=== PATIENT | female | born 1990 | race Caucasian/White ===

== ENCOUNTER 2018-07-25 21:54 | Inpatient (IN) ==
[2018-07-26] MEDS ORDERED: LACTATED RINGER'S 1,000 ML IV PRN ×2 (01:01→02:11)
[2018-07-26] MEDS ORDERED: PENICILLIN G POTASSIUM 6 MU in DEXTROSE 5% 250 ML IV STA (01:01)
[2018-07-26] MEDS ORDERED: BUPIVACAINE 0.25% 30 ML VIAL ONE (01:25)
[2018-07-26] MEDS ORDERED: fentaNYL 2MCG/ML ROPIV 1.25MG/ML 100 ML BAG EPI ONE (01:26)
[2018-07-26] MEDS ORDERED: fentaNYL citrate 100 MCG/2 ML VIAL ONE (01:26)
[2018-07-26] MEDS ORDERED: ePHEDrine sulfate 50 MG/ML AMP ONE (01:26)
[2018-07-26 01:29] LABS: Hematocrit (blood only) 34.9 % (37-47); Hemoglobin 11.9 g/dL (12.0-16.0); Mean Corpuscular Volume 88.8 fL (80-100); Mean Platelet Volume 10.6 fL (7.4-10.4); Platelet Count 157 K/uL (130-400); RDW Coefficient of Variation 13.3 % (11.5-14.5); RDW Standard Deviation 43.4 fL (36.4-46.3); Red Blood Count 3.93 M/uL (4.2-5.4); White Blood Count 13.59 K/uL (4.8-10.8)
--- NOTE | 2018-07-26 01:31 | Obstetrical Progress Note ---
Date of Service July 26, 2018 Subjective Addmit Note 28 F P2002 at 36,5 weeks in labor. GBS is positive. FHT Cat 1. Cervix 6/70/-2 /vertex. Will start antibiotic and anticipate normal delivery. Physical Exam 2 Vital Signs (Past 24 Hours): Last Vital Signs Temp 37.1 C 07/25/18 23:00 Pulse 90 07/25/18 22:54 Resp 18 07/25/18 23:00 BP 122/77 07/25/18 22:54
[2018-07-26 01:40] LABS: Mean Corpuscular Hgb Conc 34.1 g/dL (32-36)
--- NOTE | 2018-07-26 01:54 | Anesthesiology Consultation ---
Date of Service July 26, 2018 Assessment & Plan (1) Encounter for pre-operative examination: Chart Review Chart Review: Acceptable Risk for Labor Epidural History Height/Weight Height: 5 ft 3 in Weight: 86.183 kg Allergies Allergy/AdvReac Type Severity Reaction Status Date / Time hayfever Allergy Unknown Uncoded 05/11/18 11:18 Medications Home Medications Medication Instructions Recorded Confirmed Last Taken [id number] fumarate-FA 1 tab PO DAILY 07/25/18 07/26/18 07/25/18 06:00 [] Active Medications Generic Name Dose Route Start Last Admin Trade Name Freq PRN Reason Stop Dose Admin Penicillin G Potassium 6 mu/ 262 mls @ 262 mls/hr 07/26/18 01:01 07/26/18 01: 30 Dextrose IV 07/26/18 02:00 262 mls/hr NOW STA Administration Lactated Ringer's 1,000 mls @ 999 mls/hr 07/26/18 01:01 07/26/18 01:22 Lr IV 08/25/18 01:00 999 mls/hr .Q1H1M PRN Administration (Pre-Anesthesia) Past Medical History Medical History H/O wisdom tooth extraction delivery Past Family History Family History Father Hypertension Grandmother (Maternal) Breast cancer Past Surgical History Surgical History H/O nasal septoplasty Social History Smoking Status: Current every day smoker tobacco type: cigarettes Smoking cigarettes per day: 20 Do You Dip or Chew Tobacco: No Hx Alcohol Use: No Hx Substance Use: No substance use type: does not use Physical Exam Vital Signs Last Vital Signs Temp 37.1 C 07/25/18 23:00 Pulse 90 07/25/18 22:54 Resp 18 07/25/18 23:00 BP 122/77 07/25/18 22:54 Testing Laboratory Results 07/26/18 01:18
[2018-07-26] MEDS: LACTATED RINGER'S 1,000 ML IV SCH ×2 (02:06→10:00)
[2018-07-26] MEDS ORDERED: fentaNYL 2MCG/ML ROPIV 1.25MG/ML 100 ML BAG EPI PRN (02:11)
[2018-07-26] MEDS ORDERED: NALOXONE HCL 0.4 MG/1 ML VIAL/CARP IV PRN (02:11)
[2018-07-26] MEDS ORDERED: NALOXONE HCL 1 MG in SODIUM CHLORIDE 0.9% 1000ML 1,000 ML IV PRN (02:11)
[2018-07-26] MEDS ORDERED: ePHEDrine sulfate 50 MG/ML AMP IV PRN (02:11)
[2018-07-26] MEDS: PENICILLIN G POTASSIUM 3 MU in DEXTROSE 5% 100 ML IV PRN ×4 (05:04→17:05)
--- NOTE | 2018-07-26 10:32 | Progress Note ---
Date of Service July 26, 2018 Pt seenand examined PTIS 36.6WEEKS TODAY HX of PTD Admitted at 6cm +GBS- completed antibx tx FHR; CAT1 Ctx; irregular VE; Uncahnged 6cm/80/-2 Plan AROM with Amnio hook- clear Anticipate VD Physical Exam 2 Vital Signs (Past 24 Hours): Last Vital Signs Temp 37.0 C 07/26/18 07:07 Pulse 74 07/26/18 10:26 Resp 18 07/26/18 07:07 BP 119/73 07/26/18 10:21 Pulse Ox 100 07/26/18 10:26
--- NOTE | 2018-07-26 11:12 | Labor Progress Brief Note ---
Date of Service July 26, 2018 Progress Note Called to evaluate Pt with spontaneous decel On arrival, pt was on her left side with nasal oxygen FHR was not traceable with external monitor AROM with scalp placed- Meconium Turb given IM FHR returned to 150's discussed and signed consent for c/sec Physical Exam 2 Vital Signs (Past 24 Hours): Last Vital Signs Temp 37.0 C 07/26/18 07:07 Pulse 75 07/26/18 11:06 Resp 18 07/26/18 07:07 BP 97/72 L 07/26/18 11:06 Pulse Ox 100 07/26/18 11:06
[2018-07-26] MEDS ORDERED: LACTATED RINGER'S 1,000 ML IV SCH ×2 (11:15→12:13)
[2018-07-26] MEDS ORDERED: CEFAZOLIN 2,000 MG in SYRINGE 0 ML IV SCH (11:45)
[2018-07-26] MEDS ORDERED: CITRIC ACID/SODIUM CITRATE 15 ML UDC PO SCH (11:45)
[2018-07-26] MEDS ORDERED: ONDANSETRON INJ 2 MG/ML 2 ML VIAL IV PRN (12:41)
[2018-07-26] MEDS ORDERED: HYDROCORTISONE ACETATE 25 MG SUPP PR PRN ×2 (12:41→18:05)
[2018-07-26] MEDS ORDERED: BENZOCAINE 20% AER SPR 82.5 GM CAN EXT PRN ×2 (12:41→18:05)
[2018-07-26] MEDS ORDERED: PROMETHAZINE HCL 25 MG in SODIUM CHLORIDE 0.9% 50 ML IV PRN (12:41)
[2018-07-26] MEDS ORDERED: MAGNESIUM HYDROXIDE SUSP 30 ML UDC PO PRN (12:41)
[2018-07-26] MEDS ORDERED: SUPERCREAM 0.870% 15 GM JAR EXT PRN ×2 (12:41→18:05)
[2018-07-26] MEDS ORDERED: IBUPROFEN 600 MG TAB PO PRN (12:41)
[2018-07-26] MEDS ORDERED: ZOLPIDEM TARTRATE 5 MG TAB PO PRN (12:41)
[2018-07-26] MEDS ORDERED: DiphenhydrAMINE HCL 50 MG/ML VIAL IV PRN (12:41)
[2018-07-26] MEDS ORDERED: SENNA 8.6 MG TAB PO PRN (12:41)
[2018-07-26] MEDS ORDERED: OXYCODONE/ACETAMINOPHEN 5mg/325mg TAB PO PRN ×2 (12:41→18:05)
[2018-07-26] MEDS ORDERED: OXYTOCIN 30 UNITS/500 ML BAG IV PRN (14:01)
--- NOTE | 2018-07-26 14:02 | Labor Progress Brief Note ---
Date of Service July 26, 2018 Pt doing well FHR; CAT1 ctx; 2-4mins MIld VE;unchanged AROM earlier Plan Pitocin augmentation Physical Exam 2 Vital Signs (Past 24 Hours): Last Vital Signs Temp 36.4 C L 07/26/18 11:47 Pulse 69 07/26/18 13:56 Resp 18 07/26/18 11:47 BP 101/62 07/26/18 13:50 Pulse Ox 98 07/26/18 13:56
--- NOTE | 2018-07-26 15:08 | Labor Progress Brief Note ---
Date of Service July 26, 2018 Progressnote called to evaluate pt with decel into the 60 x6 mins Om arrival to room , pt wason her left side, Oxygen mask was on , Pitocin was off and IVF bolus running. FHR was back to baseline VE; 8/80/-2 Ctx 2-4mims Plan scalp placed expectant management for now Physical Exam 2 Vital Signs (Past 24 Hours): Last Vital Signs Temp 36.4 C L 07/26/18 11:47 Pulse 66 07/26/18 15:01 Resp 18 07/26/18 11:47 BP 114/60 07/26/18 14:50 Pulse Ox 100 07/26/18 15:01
[2018-07-26] MEDS ORDERED: ACETAMINOPHEN W/CODEINE #3 1 TAB PO PRN (18:05)
[2018-07-26] MEDS ORDERED: miSOPROStol 200 MCG TAB PR ONE (18:05)
[2018-07-26] MEDS ORDERED: BISACODYL 10 MG SUPP PR PRN (18:05)
[2018-07-26] MEDS ORDERED: miSOPROStol 200 MCG TAB ONE (18:16)
--- NOTE | 2018-07-26 18:31 | Delivery Summary ---
DATE OF OPERATION: 07/26/2018 Patient delivered a live in left occiput anterior presentation. There was no nuchal cord. was delivered and placed on mother's abdomen. Cord was clamped and cut. Cord blood was obtained. Placenta was spontaneously delivered. Inspection of the placenta shows a normal grossly looking placenta, 3-vessel cord is seen. Inspection of the perineum showed no laceration, no tears. ESTIMATED BLOOD LOSS: 400 mL. All instruments were removed from the vagina and accounted for x2 including sponges and retractors. Baby and mother are doing well in recovery. Infant's weight and Apgars are in the pediatric record. I attest to the content of the Intraoperative Record and any orders documented therein. Any exception s are noted below.
--- NOTE | 2018-07-26 19:47 | Anesthesia Procedure Note ---
Date of Service July 26, 2018 Anesthesia Post Epidural Note Vital Signs Vital Signs: Temp Pulse Resp BP Pulse Ox 07/26/18 19:35 78 20 113/86 07/26/18 19:20 84 117/71 07/26/18 19:05 78 20 108/78 07/26/18 18:51 93 H 113/60 07/26/18 18:35 70 123/63 07/26/18 18:21 83 133/73 07/26/18 18:05 91 H 117/62 07/26/18 17:57 98 H 128/61 07/26/18 17:52 76 148/69 H 07/26/18 17:51 71 98 07/26/18 17:46 131 H 100 07/26/18 17:44 116 H 91 07/26/18 17:41 87 99 07/26/18 17:38 36.8 C 20 07/26/18 17:36 96 H 119/71 100 07/26/18 17:31 76 99 07/26/18 17:26 87 99 07/26/18 17:21 79 99 07/26/18 17:20 81 123/65 07/26/18 17:16 69 99 07/26/18 17:11 86 99 07/26/18 17:06 75 127/66 98 07/26/18 17:01 77 99 07/26/18 16:56 66 98 07/26/18 16:51 85 99 07/26/18 16:46 86 99 07/26/18 16:41 78 99 07/26/18 16:36 61 105/56 L 98 07/26/18 16:31 75 99 07/26/18 16:26 76 98 07/26/18 16:21 68 110/58 L 100 07/26/18 16:16 75 97 07/26/18 16:11 64 98 07/26/18 16:06 76 100/57 L 98 07/26/18 16:01 78 99 07/26/18 15:56 77 99 07/26/18 15:51 82 117/55 L 99 07/26/18 15:46 69 99 07/26/18 15:41 63 100 07/26/18 15:37 56 L 109/62 07/26/18 15:36 61 100 07/26/18 15:31 60 100 07/26/18 15:26 66 100 07/26/18 15:21 59 L 113/69 100 07/26/18 15:16 70 100 07/26/18 15:11 61 100 07/26/18 15:06 63 117/57 L 100 07/26/18 15:01 66 100 07/26/18 14:56 72 100 07/26/18 14:51 57 L 100 07/26/18 14:50 56 L 114/60 07/26/18 14:46 52 L 100 07/26/18 14:41 76 100 07/26/18 14:36 68 107/56 L 99 07/26/18 14:31 66 99 07/26/18 14:26 64 98 07/26/18 14:21 70 107/62 99 07/26/18 14:16 79 100 07/26/18 14:11 61 98 07/26/18 14:06 85 100 07/26/18 14:05 87 106/64 07/26/18 14:01 63 98 07/26/18 13:56 69 98 07/26/18 13:51 81 99 07/26/18 13:50 61 101/62 07/26/18 13:46 71 98 07/26/18 13:41 73 98 07/26/18 13:36 83 99 07/26/18 13:35 77 97/63 L 07/26/18 13:31 73 98 07/26/18 13:26 69 99 07/26/18 13:22 75 101/55 L 07/26/18 13:21 75 99 07/26/18 13:16 86 99 07/26/18 13:11 75 99 07/26/18 13:06 73 97/71 L 98 07/26/18 13:01 73 100 07/26/18 12:56 70 100 07/26/18 12:51 79 113/63 99 07/26/18 12:46 84 99 07/26/18 12:41 65 99 07/26/18 12:36 81 123/57 L 99 07/26/18 12:31 69 99 07/26/18 12:26 73 99 07/26/18 12:22 67 102/63 07/26/18 12:21 74 98 07/26/18 12:16 62 98 07/26/18 12:11 63 99 07/26/18 12:06 101 H 107/67 100 07/26/18 12:01 68 99 07/26/18 11:56 61 98 07/26/18 11:51 74 108/59 L 99 07/26/18 11:47 36.4 C L 18 07/26/18 11:46 64 100 07/26/18 11:41 77 100 07/26/18 11:36 76 99 07/26/18 11:31 70 99 07/26/18 11:26 89 99 07/26/18 11:23 75 117/62 07/26/18 11:21 74 99 07/26/18 11:16 76 100 07/26/18 11:11 92 H 100 07/26/18 11:06 75 97/72 L 100 07/26/18 11:01 75 99 07/26/18 10:56 77 99 07/26/18 10:51 73 99 07/26/18 10:50 77 101/57 L 07/26/18 10:46 74 99 07/26/18 10:41 71 99 07/26/18 10:36 71 109/65 100 07/26/18 10:31 64 99 07/26/18 10:26 74 100 07/26/18 10:21 76 119/73 100 07/26/18 10:16 76 99 07/26/18 10:11 70 99 07/26/18 10:06 70 107/69 100 07/26/18 10:01 72 99 07/26/18 09:56 72 99 07/26/18 09:51 70 100 07/26/18 09:50 69 110/66 07/26/18 09:46 79 100 07/26/18 09:41 62 100 07/26/18 09:37 66 110/70 07/26/18 09:36 68 100 07/26/18 09:31 81 99 07/26/18 09:26 74 100 07/26/18 09:21 70 100 07/26/18 09:20 71 106/67 07/26/18 09:16 71 100 07/26/18 09:14 73 91 07/26/18 09:11 75 100 07/26/18 09:06 66 100 07/26/18 09:05 76 112/72 07/26/18 09:01 66 100 12/26/18 08:56 68 100 12/18 08:51 82 108/69 100 12/18 08:46 81 100 12/18 08:41 71 100 07/26/18 08:36 68 110/59 L 100 12/18 08:31 70 100 12/18 08:26 74 100 07/26/18 08:21 63 113/67 99 07/26/18 08:16 63 99 07/26/18 08:11 64 99 07/26/18 08:06 67 100 07/26/18 08:05 71 107/64 07/26/18 08:01 82 99 07/26/18 07:56 76 100 07/26/18 07:51 78 103/61 100 07/26/18 07:46 73 100 07/26/18 07:41 73 100 07/26/18 07:36 80 100 07/26/18 07:31 86 100 07/26/18 07:26 77 100 07/26/18 07:21 71 100 07/26/18 07:16 72 100 07/26/18 07:11 73 100 07/26/18 07:07 37.0 C 18 07/26/18 07:06 80 107/68 100 07/26/18 07:01 76 100 07/26/18 06:56 70 99 07/26/18 06:51 65 100 07/26/18 06:50 65 109/61 07/26/18 06:46 71 99 07/26/18 06:41 71 100 07/26/18 06:36 67 110/63 100 07/26/18 06:31 69 99 07/26/18 06:26 66 99 07/26/18 06:22 69 103/64 07/26/18 06:21 77 99 07/26/18 06:16 98 H 100 07/26/18 06:11 71 100 07/26/18 06:06 75 18 100 07/26/18 06:05 73 115/72 07/26/18 06:01 66 100 07/26/18 05:56 83 100 07/26/18 05:51 70 109/73 100 07/26/18 05:46 86 100 07/26/18 05:41 64 100 07/26/18 05:36 67 100 07/26/18 05:35 83 107/73 12/26/18 05:31 76 100 18 05:26 72 100 07/26/18 05:21 71 100 07/26/18 05:20 75 107/67 18 05:16 68 100 18 05:11 71 100 18 05:06 72 115/67 100 07/26/18 05:01 82 100 07/26/18 04:56 82 100 07/26/18 04:55 18 07/26/18 04:51 73 100 18 04:50 85 96/58 L 07/26/18 04:46 65 100 07/26/18 04:41 68 100 07/26/18 04:36 69 99 07/26/18 04:35 70 105/61 07/26/18 04:31 71 99 07/26/18 04:26 72 99 07/26/18 04:21 72 99 07/26/18 04:20 76 106/60 07/26/18 04:16 70 99 07/26/18 04:15 36.9 C 18 07/26/18 04:11 72 99 07/26/18 04:06 69 100 18 04:05 72 104/60 07/26/18 04:01 72 99 07/26/18 04:00 18 07/26/18 03:56 72 99 07/26/18 03:51 69 100 07/26/18 03:50 77 111/68 07/26/18 03:46 89 99 07/26/18 03:41 69 100 18 03:36 66 106/68 100 18 03:31 68 99 18 03:26 70 100 18 03:21 68 99 18 03:20 91 H 106/63 07/26/18 03:16 79 99 07/26/18 03:11 66 99 07/26/18 03:06 74 113/65 99 18 03:01 70 99 07/26/18 02:56 90 100 18 02:51 79 99 18 02:50 81 113/66 18 02:46 84 99 18 02:41 86 99 18 02:38 18 07/26/18 02:36 81 111/65 99 07/26/18 02:31 88 98 07/26/18 02:30 18 07/26/18 02:26 87 99 07/26/18 02:21 100 H 100 07/26/18 02:20 18 07/26/18 02:19 95 H 113/66 07/26/18 02:17 99 H 112/68 07/26/18 02:16 99 H 100 07/26/18 02:15 95 H 18 116/70 07/26/18 02:13 83 113/69 07/26/18 02:11 79 117/70 100 07/26/18 02:10 18 07/26/18 02:09 92 H 121/60 07/26/18 02:06 76 100 07/26/18 02:01 75 100 07/26/18 02:00 36.9 C 18 07/26/18 01:56 103 H 100 07/25/18 23:00 37.1 C 18 07/25/18 22:54 90 122/77 07/25/18 22:20 37 C 20 07/25/18 22:06 93 H 121/77 07/25/18 22:05 37.0 C 20 Notes Mental Status: alert / awake / arousable and participated in evaluation Nausea / Vomiting: adequately controlled Pain: adequately controlled Airway Patency, RR, SpO2: stable & adequate BP & HR: stable & adequate Hydration State: stable & adequate Neuraxial Anesthesia: was administered and sensory block is resolving Anesthetic Complications: no major complications apparent and Pt Satisfied with anesthetic care Epidural: Removed without complications and With tip intact
[2018-07-26] MEDS ORDERED: OXYTOCIN 20 UNITS in LACTATED RINGER'S 1,000 ML IV SCH (20:45)
[2018-07-26] MEDS ORDERED: DOCUSATE SODIUM 100 MG CAP PO SCH (21:00)
[2018-07-26] MEDS: IBUPROFEN 600 MG TAB PO PRN (21:02)
[2018-07-26] MEDS: DOCUSATE SODIUM 100 MG CAP PO SCH (21:59)
[2018-07-26] MEDS ORDERED: Nursing to Pharmacy Communication ONE (22:19)
[2018-07-27 06:28] LABS: Hematocrit (blood only) 35.2 % (37-47); Hemoglobin 11.7 g/dL (12.0-16.0); Mean Corpuscular Hgb Conc 33.2 g/dL (32-36); Mean Corpuscular Volume 89.6 fL (80-100); Mean Platelet Volume 11.1 fL (7.4-10.4); Platelet Count 135 K/uL (130-400); RDW Coefficient of Variation 13.4 % (11.5-14.5); RDW Standard Deviation 44.2 fL (36.4-46.3); Red Blood Count 3.93 M/uL (4.2-5.4); White Blood Count 13.13 K/uL (4.8-10.8)
[2018-07-27] MEDS: NICOTINE 14 MG/24 HR PATCH TD SCH (08:42)
[2018-07-27] MEDS: DOCUSATE SODIUM 100 MG CAP PO SCH ×2 (08:52→20:44)
[2018-07-27] MEDS: FERROUS SULFATE 325 MG TAB PO SCH (08:52)
[2018-07-27] MEDS: PRENATAL VITAMIN 1 TAB PO SCH (08:52)
[2018-07-27] MEDS ORDERED: PRENATAL VITAMIN 1 TAB PO SCH (09:00)
[2018-07-27] MEDS ORDERED: FERROUS SULFATE 325 MG TAB PO SCH (09:00)
--- NOTE | 2018-07-27 11:29 | Obstetrical Progress Note ---
Date of Service July 27, 2018 Subjective doing well tolerating diet well Physical Exam 2 Vital Signs (Past 24 Hours): Last Vital Signs Temp 36.9 C 07/27/18 08:00 Pulse 66 07/27/18 08:00 Resp 20 07/27/18 08:00 BP 121/74 07/27/18 08:00 Pulse Ox 99 07/27/18 03:14 Constitutional: WD/WN, vitals as above comfortable fundus firm no edema Neg Parul"s PPD#1 tent discharge in AM
[2018-07-27] MEDS: IBUPROFEN 600 MG TAB PO PRN ×2 (11:38→20:47)
[2018-07-27] MEDS ORDERED: BISACODYL 5 MG TABEC PO SCH ×2 (20:00)
[2018-07-28] MEDS: NICOTINE 14 MG/24 HR PATCH TD SCH (07:57)
[2018-07-28] MEDS: DOCUSATE SODIUM 100 MG CAP PO SCH (07:58)
[2018-07-28] MEDS: PRENATAL VITAMIN 1 TAB PO SCH (07:58)
[2018-07-28] MEDS: FERROUS SULFATE 325 MG TAB PO SCH (07:58)
--- NOTE | 2018-07-28 11:49 | Obstetrical Progress Note ---
Date of Service July 28, 2018 Assessment & Plan (1) normal course: PPd #2 pt doing well No complaints d/c home with instructions Subjective Ambulation: ambulating normally Voiding: no voiding problems Passing Gas:: Yes Diet Tolerance:: regular diet Lochia:: Small Feeding Type:: breast feeding Review of Systems All systems reviewed & are unremarkable except as noted in HPI & below Physical Exam Vital Signs (Past 24 Hours) Last Vital Signs Temp 36.4 C L 07/28/18 07:45 Pulse 56 L 07/28/18 07:45 Resp 18 07/28/18 07:45 BP 126/87 07/28/18 07:45 Pulse Ox 100 07/28/18 07:45 Constitutional WD/WN, vitals as above well developed and well nourished Eyes PERRL, conjunctivae normal, anicteric sclerae Neck trachea midline, no thyromegaly Respiratory normal respiratory effort, lungs clear to auscultation Auscultation: no crackles, no rales and no wheezes Cardiovascular RRR, no murmur, no edema Gastrointestinal (Abdomen) normal bowel sounds, soft, nontender, no hepatosplenomegaly Uterus is below umbilicus Musculoskeletal no cyanosis or clubbing, extremities motor strength 5/5 Skin no rashes, warm and dry Neurologic patellar DTR's 2+ bilat, sensation intact Psychiatric A+Ox3, euthymic affect Genitourinary normal external appearance
[2018-07-28] MEDS: IBUPROFEN 600 MG TAB PO PRN (12:17)
[2018-07-28] MEDS ORDERED: BISACODYL 10 MG SUPP PR PRN (12:41)
== END 2018-07-28 17:54 | disposition home or self-care (01) | DRG 807 ==
LOC: OPB 21:54 → 4S1 21:56 → 4S2 07-26 21:00